=== PATIENT | male | born 1970 | race Caucasian/White ===

== ENCOUNTER → 2016-08-19 | Outpatient (CLI) | payer BC ==
[~2016-08-19] MED LIST: LEV50T PO; LISI10TA6 PO; MELO-86 PO; NOR5T PO; TEST1INJ15 IM
[2016-08-19 09:03] LABS: Basophils # (auto) 0.1 uL; Basophils % (auto) 0.8 % (0.0-2.0); Eosinophils # (auto) 0.3 uL; Eosinophils % (auto) 3.4 % (0.0-7.0); Hematocrit 49.5 % (41.0-53.0); Hemoglobin 16.7 g/dL (13.5-17.5); Lymphocytes # (auto) 1.7 uL; Lymphocytes % (auto) 17.1 % (10.0-50.0); Mean Corpuscular Hemoglobin 30.8 pg (28.0-32.0); Mean Corpuscular Hgb Conc. 33.8 g/dL (32.0-36.0); Mean Platelet Volume 9.3 fL (7.4-10.4); Monocytes # (auto) 0.8 uL; Monocytes % (auto) 8.4 % (0.0-12.0); Neutrophils # (auto) 6.9 uL; Neutrophils % (auto) 70.3 % (37.0-80.0); Platelet Count (auto) 337 10^3/uL (140-450); Red Cell Distribution Width 13.6 % (11.6-16.0); White Blood Cell 9.8 10^3/uL (4.4-10.8)
[2016-08-19 09:16] LABS: INR 1.08 (0.9-1.15); Prothrombin Time 11.1 sec (9.37-12.3)
== END | disposition home or self-care (01) ==
LOC: LAB 08:04
PROVIDERS: ATTEND Internal Medicine Gastroenterology
DX: Z01.812 Encounter for preprocedural laboratory examination (principal)
CPT/HCPCS: 36415; 85025; 85610; 85730

== ENCOUNTER 2016-08-23 08:19 | Day surgery (SDC) | payer BC ==
[~2016-08-23] VITALS: Ht 180.3 cm; Wt 155.6 kg
[2016-08-23] MEDS ORDERED: diphenhdrAMINE HCL 50 MG/1 ML VL ONE (08:23)
[2016-08-23] MEDS ORDERED: LIDOCAINE VISCOUS 2% 15ML UD ONE (08:23)
[2016-08-23] MEDS ORDERED: SODIUM CHLORIDE LOCK 10 ML ONE (08:23)
[2016-08-23] MEDS: MIDAZOLAM HCL 5 MG/ML-1ML VIAL ONE ×3 (10:01→10:10)
[2016-08-23] MEDS: fentaNYL CITRATE 100 MCG/2 ML VL ONE ×2 (10:01→10:04)
[2016-08-23 11:10] VITALS: BP 141/90
== END 2016-08-23 11:15 | disposition home or self-care (01) ==
LOC: GI 08:19
PROVIDERS: ATTEND Internal Medicine Gastroenterology
DX: K57.30 Diverticulosis of large intestine without perforation or abscess without bleeding (principal); K29.50 Unspecified chronic gastritis without bleeding; K44.9 Diaphragmatic hernia without obstruction or gangrene; K20.9 Esophagitis, unspecified; E66.9 Obesity, unspecified
CPT/HCPCS: 43239; 45378; 88305; 88313; 88342; J1200; J2250; J3010; J7030

== ENCOUNTER 2017-08-05 09:10 | Day surgery (SDC) | payer BC ==
[2017-08-01 13:09] LABS: Basophils # (auto) 0.1 uL; Basophils % (auto) 0.7 % (0.0-2.0); Eosinophils # (auto) 0.2 uL; Hematocrit 52.2 % (41.0-53.0); Hemoglobin 17.6 g/dL (13.5-17.5); Lymphocytes # (auto) 1.5 uL; Lymphocytes % (auto) 17.4 % (10.0-50.0); Mean Corpuscular Hemoglobin 31.4 pg (28.0-32.0); Mean Corpuscular Hgb Conc. 33.6 g/dL (32.0-36.0); Mean Corpuscular Volume 93.5 fL (80.0-100.0); Monocytes # (auto) 0.9 uL; Neutrophils # (auto) 6.2 uL; Neutrophils % (auto) 69.9 % (37.0-80.0); Nucleated Red Blood Cells % 0.1 %; Platelet Count (auto) 344 10^3/uL (140-450); Red Blood Cells 5.59 10^6/uL (4.5-5.90); Red Cell Distribution Width 13.6 % (11.8-14.3); White Blood Cell 8.8 10^3/uL (4.4-10.8)
[2017-08-01 13:17] LABS: INR 1.01 (0.9-1.15)
[~2017-08-05] VITALS: Ht 180.3 cm; Wt 144.7 kg
[~2017-08-05 09:10] MED LIST changes: +HYDR-4683 PO; -LISI10TA6 PO; +LOSA25TA9 PO; -MELO-86 PO; +MELO1TAB56 PO; +MULTTAB61 PO; -NOR5T PO
[2017-08-05] MEDS ORDERED: LIDOCAINE VISCOUS 2% 15ML UD ONE (09:17)
[2017-08-05] MEDS ORDERED: diphenhdrAMINE HCL 50 MG/1 ML VL ONE (09:17)
[2017-08-05] MEDS ORDERED: SODIUM CHLORIDE LOCK 10 ML ONE (09:18)
[2017-08-05] MEDS: fentaNYL CITRATE 100 MCG/2 ML VL ONE ×2 (10:01→10:05)
[2017-08-05] MEDS: MIDAZOLAM HCL 5 MG/ML-1ML VIAL ONE ×2 (10:01→10:05)
[2017-08-05 11:03] VITALS: BP 137/93
== END 2017-08-05 11:03 | disposition home or self-care (01) ==
LOC: GI 09:10
PROVIDERS: ATTEND Internal Medicine Gastroenterology
DX: K20.9 Esophagitis, unspecified (principal); E66.01 Morbid (severe) obesity due to excess calories; Z68.41 Body mass index [BMI] 40.0-44.9, adult; Z90.49 Acquired absence of other specified parts of digestive tract
CPT/HCPCS: 36415; 43239; 85025; 85610; J1200; J2250; J3010; J7030